=== PATIENT | female | born 1990 | race Two or more races ===

== ENCOUNTER 2024-09-01 14:20 | Emergency (ER) | payer MEDICAID, SELFPAY ==
[2024-09-01 14:21] VITALS: BMI 42.0
--- NOTE | 2024-09-01 14:41 | XR_ITS ---
Examination: Knee, left , 3 views Technique: Knee AP, lateral, oblique 3 views Date and time of exam: 25 at 1515 hours INDICATIONS: Knee pain beginning 2 years ago FINDINGS: Mild to moderate narrowing medial joint space. No fracture or dislocation. No ossified joint bodies IMPRESSION: Mild to moderate narrowing medial joint space
--- NOTE | 2024-09-01 14:42 | EDNOTE_ITS ---
<Statement entered by Rehana Danielson MD - 09/01/24 17:50> As co-signing physician, I was present and available for consult prn. I concur with the plan and care as documented by the midlevel provider. ED General RME/HPI General Chief complaint: Flu Like Symptoms Stated complaint: COUGH SINCE 08/24, PAIN IN LLE BY KNEE Time Seen by Provider: 09/01/24 14:34 Arrival date/time: 09/01/24 14:20 CC: Cough with sore throat x 1 week and knee pain x 2 years HPI patient has had a cough x 2 weeks denies fever nausea vomiting headache shortness of breath or difficulty breathing. No OTC medicines taken. Knee pain is ongoing for 2 years after falling on a rock , patient stated that the knee occasionally fay . Patient observed ambulating without complication. Related Data Previous Rx's ?Medication ?Instructions ?Recorded guaifenesin 200 mg/5 mL oral liquid 200 mg (5 mL) PO Q 4H PRN cough 09/01/24 #118 mL Allergies Allergy/AdvReac Type Severity Reaction Status Date / Time Penicillins Allergy Unknown Hives Verified 09/01/24 14:25 Review of Systems Review of Systems Narrative Review of Systems: GEN: No fever, no chills, no weight loss EYES: No discharge, no visual changes, no pain HEENT: No ear pain, no congestion, no sore throat PULM: No shortness of breath, + cough, no congestion CV: No chest pain, no dyspnea on exertion, no palpitations GI: No nausea, no vomiting, no diarrhea, no pain, no constipation : No frequency, no urgency, no dysuria MUSC/SKEL: No joint pain, no back pain SKIN: No rash PSYCH: No hallucinations, no depression HEME/LYMPH: No easy bleeding or bruising tendencies NEURO: No weakness, no headache Past Medical History Social History SMOKING STATUS: Never smoker ED Exam Narrative Physical exam: [General: Morbidly obese not in any acute distress Head normocephalic HEENT: Eyes pupils are PERRLA EOMs are intact mouth pink moist membranes uvula is midline swallow symmetrical phonation is normal. Within acceptable limits Neck is supple nontender Chest equal chest rise nontender to palpation Respiratory: Clear to auscultation no wheezes crackles or rubs, dry nonproductive cough. CV: Rate rhythm is regular no murmurs rubs or clicks Abdomen is grossly distended secondary to body habitus soft nontender no masses positive bowel sounds all 4 quadrants Back: No CVA tenderness no spinous process tenderness from cervical spine thoracic and lumbar spine Skin: Small open lesions to the lower legs suggestive of picking on the skin. Otherwise skin is intact no petechiae rash induration ulceration or crepitus Extremities: Left lower extremity knee. The patient has a mild limp, but is flexion extension no lateral laxity negative anterior drawer. Cap refill in the digits less than 2 seconds. Moving all other extremities against resistance cap refill less than 2 seconds neurosensory intact Neuro: Awake alert oriented x3 Glascow coma 15 no focal deficits] Course Quality Measures none Orders Category Date Time Status Bedside Influenza A&B Antigen Test NOW Care 09/01/24 14:41 Active XR knee LT 3V Stat Exams 09/01/24 14:41 Completed Vital Signs Vital signs: Vital Signs Temperature 98.3 F 09/01/24 14:48 Pulse Rate 64 09/01/24 14:48 Respiratory Rate 18 09/01/24 14:48 Blood Pressure 153/102 H 09/01/24 14:48 Pulse Oximetry (%) 97 09/01/24 14:48 Oxygen Delivery Method Room Air 09/01/24 14:48 MDM Patient data External records reviewed:: [facility] previous records Clinical information provided by:: patient Social determinants that could affect healthcare access:: none Patient has the following chronic illnesses:: Morbid obesity How is presenting disease/condition affected by chronic disease/condition?: exacerbated by Evaluation data The following diagnostics were reviewed and interpreted by me:: lab results and radiology exam(s) Lab and/or radiology exams considered but not ordered:: Influenza is negative Knee x-ray shows mild joint space narrowing but no other acute finding. Interpretation Summary: Cough viral related, chronic knee pain Medications Medications considered but not ordered:: None Medication administrations:: None Consultations Consultation(s) initiated? (list below): No Diagnosis Differential Diagnosis ED Complaint MDM: Influenza viral syndrome URI chronic knee pain Most likely diagnosis given after review of the tests above:: Cough URI knee pain Admission Indicated Admission indicated?: not indicated Explain why admission is indicated or not indicated:: Stable for outpatient follow-up Admission Request Was there a request for admission?: No Disposition Plan Disposition Plan: Discharge Discharge Attestation Discharge Attestation: The patient and all family members were given an opportunity to ask questions and understood the discharge instructions. Discharge instructions specifically effects, indications for sooner follow up or return to the emergency department, and the expected course of current diagnosis. Patient condition: Stable Medical Decision Making Differential Diagnosis Differential Diagnosis: Influenza viral syndrome URI chronic knee pain Discharge Plan Plan Patient Disposition: HOME (Self Care) Patient condition on transfer: Stable Prescriptions/Referrals Prescriptions/Med Rec: New guaifenesin 200 mg/5 mL liquid 200 mg PO Q4H PRN (Reason: cough) Qty: 118 0RF Problem List Clinical Impression: Cough, Viral syndrome, Chronic knee pain, Morbid obesity Patient/Caregiver Discharge Instructions Other Activity Instructions:: Your cough is most likely a virus, we have given you cough medicine. Follow-up with an orthopedic doctor or your primary care for your knee. The x-ray shows mild joint space narrowing. Education Materials: ED Knee Pain of Uncertain Cause, ED Viral Syndrome (Adult) Print Language: Tamazight Stand Alone Forms: [place] Award Info., Patient Portal Info Letter, Work/School Release PA/ZIGZAG MACHINE OPERATOR Supervising Physician PA/ZIGZAG MACHINE OPERATOR Supervising Physician: Brian Davies ENP
[2024-09-01 14:48] VITALS: BP 153/102; PULSE 64; RESP 18; TEMP 36.8; O2SAT 97
== END 2024-09-01 16:15 | disposition home or self-care (01) ==
LOC: SERX 16:20
PROVIDERS: Emergency Provider Emergency Medicine
DX: B34.9 Viral infection, unspecified (principal); M25.862 Other specified joint disorders, left knee; E66.01 Morbid (severe) obesity due to excess calories; Z68.41 Body mass index [BMI] 40.0-44.9, adult
CPT/HCPCS: 73562; 87400; 99283